=== PATIENT | female | born 1985 | race Caucasian/White ===

== ENCOUNTER 2016-12-04 09:49 | Emergency (ER) | payer OTHER ==
[~2016-12-04] VITALS: Ht 154.9 cm; Wt 61.1 kg
[~2016-12-04 09:49] MED LIST: ACYC-1 PO; BACT800T5 PO
[2016-12-04 10:00] VITALS: BP 133/93; PULSE 106; RESP 16; TEMP 98.3; O2SAT 98
[2016-12-04] MEDS ORDERED: SODIUM CHLOR 0.9% 1000 ML INJ 1,000 ML IV SCH (10:17)
[2016-12-04] MEDS ORDERED: SODIUM CHLORIDE 0.9% FLUSH 10 ML FLUSH IVF PRN (10:30)
[2016-12-04] MEDS ORDERED: ONDANSETRON HCL 4 MG/2 ML VIAL IVP ONE (10:30)
[2016-12-04] MEDS ORDERED: MORPHINE SULFATE 4 MG/ML INJ IV ONE (10:30)
[2016-12-04 10:39] LABS: AUTOMATED NEUTROPHIL # 3.8 TH/MM3 (1.8-7.7); BASOPHIL # 0.1 TH/MM3 (0-0.2); BASOPHIL % 1.2 % (0.0-2.0); EOSINOPHIL # 0.1 TH/MM3 (0-0.4); EOSINOPHIL % 2.2 % (0.0-4.0); HEMATOCRIT 39.9 % (35.0-46.0); HEMO FLAGS DIFF FINAL; LYMPH % 27.2 % (9.0-44.0); LYMPHOCYTE # 1.7 TH/MM3 (1.0-4.8); MEAN CELL VOLUME 96.4 FL (80.0-100.0); MEAN CORPUSCULAR HEMOGLOBIN 32.4 PG (27.0-34.0); MEAN CORPUSCULAR HGB CONC 33.7 % (32.0-36.0); MONO % 6.7 % (0.0-8.0); NEUT % 62.7 % (16.0-70.0); PLATELET COUNT 283 TH/MM3 (150-450); RED BLOOD COUNT 4.14 MIL/MM3 (4.00-5.30); RED CELL DISTRIBUTION WIDTH 12.6 % (11.6-17.2); WHITE BLOOD COUNT 6.1 TH/MM3 (4.0-11.0)
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
[2016-12-04 11:00] LABS: POTASSIUM 3.8 MEQ/L (3.5-5.1)
[2016-12-04 11:03] LABS: BICARBONATE 28.9 MEQ/L (21.0-32.0)
[2016-12-04 11:04] LABS: APTT (PATIENT) 28.6 SEC (24.3-30.1); INTERNATIONAL NORMALIZED RATIO 0.9 RATIO; PROTHROMBIN TIME - PATIENT 10.3 SEC (9.8-11.6)
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
[2016-12-04] MEDS ORDERED: IOHEXOL 350 MG/ML 10 ML VIAL (for RAD DIAG) IV ONE (11:29)
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
[2016-12-04 11:55] VITALS: BP 111/69; PULSE 74; RESP 18; O2SAT 98
[2016-12-04] MEDS ORDERED: CYCL1TAB29 PO (12:06)
== END 2016-12-04 12:17 | disposition home or self-care (01) ==
LOC: PHEFT 09:49
DX: S46.911A Strain of unspecified muscle, fascia and tendon at shoulder and upper arm level, right arm, initial encounter (principal); S56.911A Strain of unspecified muscles, fascia and tendons at forearm level, right arm, initial encounter; R10.11 Right upper quadrant pain; K21.9 Gastro-esophageal reflux disease without esophagitis; F17.210 Nicotine dependence, cigarettes, uncomplicated; V43.62XA Car passenger injured in collision with other type car in traffic accident, initial encounter; Y93.89 Activity, other specified; Y92.410 Unspecified street and highway as the place of occurrence of the external cause; Y99.8 Other external cause status
CPT/HCPCS: 71020; 73030; 73080; 74177; 80048; 85025; 85610; 85730; 86850; 86900; 86901; 96361; 96374; 96375; 99284; J2270; J2405; J7030; Q9967

== ENCOUNTER 2016-12-08 01:47 | Emergency (ER) | payer OTHER ==
[~2016-12-08] VITALS: Ht 167.6 cm; Wt 182.6 kg
[~2016-12-08 01:47] MED LIST changes: +CYCL1TAB29 PO
[2016-12-08 02:47] VITALS: BP 176/112; PULSE 119; RESP 18; TEMP 98.5; O2SAT 98
[2016-12-08] MEDS ORDERED: SODIUM CHLOR 0.9% 1000 ML INJ 1,000 ML IV SCH (02:53)
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
[2016-12-08] MEDS ORDERED: ONDANSETRON HCL 4 MG/2 ML VIAL IVP ONE (03:00)
[2016-12-08] MEDS ORDERED: SODIUM CHLORIDE 0.9% FLUSH 10 ML FLUSH IV FLUSH PRN (03:00)
[2016-12-08 03:10] LABS: AUTOMATED NEUTROPHIL # 4.4 TH/MM3 (1.8-7.7); BASOPHIL # 0.2 TH/MM3 (0-0.2); BASOPHIL % 2.3 % (0.0-2.0); EOSINOPHIL # 0.2 TH/MM3 (0-0.4); EOSINOPHIL % 2.5 % (0.0-4.0); HEMATOCRIT 41.4 % (35.0-46.0); HEMO FLAGS DIFF FINAL; LYMPH % 31.4 % (9.0-44.0); LYMPHOCYTE # 2.4 TH/MM3 (1.0-4.8); MEAN CELL VOLUME 95.2 FL (80.0-100.0); MEAN CORPUSCULAR HEMOGLOBIN 32.5 PG (27.0-34.0); MEAN CORPUSCULAR HGB CONC 34.2 % (32.0-36.0); MONO % 7.3 % (0.0-8.0); NEUT % 56.5 % (16.0-70.0); PLATELET COUNT 310 TH/MM3 (150-450); RED BLOOD COUNT 4.35 MIL/MM3 (4.00-5.30); RED CELL DISTRIBUTION WIDTH 12.2 % (11.6-17.2); WHITE BLOOD COUNT 7.8 TH/MM3 (4.0-11.0)
[2016-12-08 03:19] LABS: CHLORIDE 110 MEQ/L (98-107); SODIUM (NA) 144 MEQ/L (136-145)
[2016-12-08 03:23] LABS: ANION GAP 9 MEQ/L (5-15); BICARBONATE 24.9 MEQ/L (21.0-32.0); BLOOD UREA NITROGEN 8 MG/DL (7-18)
[2016-12-08 03:25] LABS: ALT (GPT) 39 U/L (10-53)
[2016-12-08 03:26] LABS: AST (GOT) 51 U/L (15-37); GLOMERULAR FILTRATION RATE 137 ML/MIN (>89)
[2016-12-08 03:27] LABS: TOTAL BILIRUBIN ADULT 0.2 MG/DL (0.2-1.0)
[2016-12-08 03:28] LABS: ALKALINE PHOSPHATASE 86 U/L (45-117)
[2016-12-08] MEDS ORDERED: KETOROLAC TROMETHAMINE 60 MG/2 ML (IM) VIAL IVP ONE (03:30)
[2016-12-08] MEDS ORDERED: IBUP-232 PO (03:43)
--- NOTE | 2016-12-08 03:44 | RADHPO ---
EXAM DATE/TIME: 12/08/2016 00:00 [facility] COMPARISON: No previous studies available for comparison. INDICATIONS : Right hip pain. MEDICAL HISTORY : None. SURGICAL HISTORY : None. ENCOUNTER: [facility] ACUITY: 4 - 6 days PAIN SCORE: 9/10 LOCATION: Right pelvis FINDINGS: A two view examination of the right hip was performed. The primary and secondary trabecular pattern of the femoral neck is intact. The hip joint is of normal width without significant sclerosis or bon y hypertrophy. The acetabulum is grossly intact. CONCLUSION: Unremarkable examination of the right hip. Jeffery Croft Jr., MD on December 08, 2016 at 3:42 Board Certified Radiologist. This report was verified electronically.
--- NOTE | 2016-12-08 03:45 | RADHPO ---
EXAM DATE/TIME: 12/08/2016 00:00 [facility] COMPARISON: No previous studies available for comparison. INDICATIONS : Right abdominal pain. MEDICAL HISTORY : None. SURGICAL HISTORY : None. ENCOUNTER: [facility] ACUITY: 4 - 6 days PAIN SCORE: 9/10 LOCATION: Right lower quadrant abdomen FINDINGS: Supine and upright views of the abdomen were performed. The abdominal bowel gas pattern is normal. No air fluid levels are seen. No abnormal masses, calcifications, or organomegaly is seen. The visu alized lower lungs are clear. No evidence of free intraperitoneal gas. The osseous structures are u nremarkable. CONCLUSION: Normal examination. Jeffery Croft Jr., MD on December 08, 2016 at 3:43 Board Certified Radiologist. This report was verified electronically.
[2016-12-08] MEDS ORDERED: ZOFR4TAB PO (04:41)
[2016-12-08 04:53] VITALS: BP 142/85; PULSE 74; RESP 16; O2SAT 98
== END 2016-12-08 05:03 | disposition home or self-care (01) ==
LOC: PHED 01:47
DX: R10.84 Generalized abdominal pain (principal); S70.01XA Contusion of right hip, initial encounter; R11.0 Nausea; K21.9 Gastro-esophageal reflux disease without esophagitis; F17.210 Nicotine dependence, cigarettes, uncomplicated; V89.9XXD Person injured in unspecified vehicle accident, subsequent encounter; Y93.9 Activity, unspecified; Y92.9 Unspecified place or not applicable; Y99.8 Other external cause status
CPT/HCPCS: 73502; 74020; 80053; 83690; 85025; 96361; 96374; 96375; 99284; J1885; J2405; J7030

== ENCOUNTER 2016-12-18 07:28 | Emergency (ER) | payer SELFPAY ==
[~2016-12-18] VITALS: Ht 154.9 cm; Wt 60.1 kg
[~2016-12-18 07:28] MED LIST changes: -ACYC-1 PO; -BACT800T5 PO; -CYCL1TAB29 PO; +IBUP-232 PO; +ZOFR4TAB PO
[2016-12-18 07:36] VITALS: BP 111/80; PULSE 106; RESP 16; TEMP 98.1; O2SAT 97
[2016-12-18] MEDS ORDERED: CEPHALEXIN MONOHYDRATE 500 MG CAP PO ONE (08:30)
[2016-12-18] MEDS ORDERED: LIDOCAINE VISCOUS 2% SOLN 15 ML UDC PO ONE (08:30)
[2016-12-18] MEDS ORDERED: ALUMINUM/MAGNESIUM/SIMETH 30 ML CUP PO ONE (08:30)
[2016-12-18] MEDS ORDERED: DEXAMETHASONE SOD PHOS 4 MG/ML VIAL IM ONE (08:30)
[2016-12-18] MEDS ORDERED: GUAI100S5 PO (08:31)
[2016-12-18] MEDS ORDERED: OCEA0.653 EACH NARE (08:31)
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
== END 2016-12-18 08:49 | disposition home or self-care (01) ==
LOC: PHED 07:28
DX: J02.9 Acute pharyngitis, unspecified (principal); H92.03 Otalgia, bilateral; R51 Headache; R05 Cough; F17.210 Nicotine dependence, cigarettes, uncomplicated
CPT/HCPCS: 96372; 99283; J1100

== ENCOUNTER 2017-01-29 16:49 | Emergency (ER) | payer SELFPAY ==
[~2017-01-29] VITALS: Ht 154.9 cm; Wt 61.0 kg
[~2017-01-29 16:49] MED LIST changes: +GUAI100S5 PO; +OCEA0.653 EACH NARE
[2017-01-29 16:56] VITALS: BP 148/96; PULSE 88; RESP 16; TEMP 98.2; O2SAT 96
[2017-01-29] MEDS ORDERED: SODIUM CHLOR 0.9% 1000 ML INJ 1,000 ML IV ONE (17:05)
[2017-01-29] MEDS ORDERED: BACL20TA PO (17:10)
[2017-01-29] MEDS ORDERED: IBUP800T23 PO (17:10)
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
[2017-01-29] MEDS ORDERED: MORPHINE SULFATE 4 MG/ML INJ IV PUSH ONE (17:15)
[2017-01-29] MEDS ORDERED: KETOROLAC TROMETHAMINE 30 MG/ML (IVP) VIAL IVP ONE (17:15)
[2017-01-29] MEDS ORDERED: diphenhydrAMINE HCL 50 MG/ML VIAL IVP ONE (17:15)
[2017-01-29] MEDS ORDERED: PROCHLORPERAZINE INJ 10 MG/2 ML VIAL IVP ONE (17:15)
[2017-01-29] MEDS ORDERED: SODIUM CHLORIDE 0.9% FLUSH 10 ML FLUSH IVF PRN (17:15)
[2017-01-29 17:22] VITALS: RESP 16; O2SAT 98
[2017-01-29 17:58] VITALS: RESP 16
[2017-01-29] MEDS ORDERED: BUTA1CAP PO (18:17)
[2017-01-29 19:26] VITALS: BP 120/69; TEMP 98.1
== END 2017-01-29 19:29 | disposition home or self-care (01) ==
LOC: PHED 16:49
DX: R51 Headache (principal); K21.9 Gastro-esophageal reflux disease without esophagitis; F17.200 Nicotine dependence, unspecified, uncomplicated
CPT/HCPCS: 96361; 96374; 96375; 99283; J0780; J1200; J1885; J2270; J7030

== ENCOUNTER 2017-06-23 19:10 | Emergency (ER) | payer SELFPAY ==
[~2017-06-23] VITALS: Ht 154.9 cm; Wt 58.5 kg
[~2017-06-23 19:10] MED LIST changes: +BACL20TA PO; +BUTA1CAP PO; -GUAI100S5 PO; -IBUP-232 PO; +IBUP800T23 PO; -OCEA0.653 EACH NARE; -ZOFR4TAB PO
[2017-06-23 19:18] VITALS: BP 169/91; PULSE 82; RESP 14; TEMP 98; O2SAT 97
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
[2017-06-23] MEDS ORDERED: HYDR-3516 PO (19:48)
[2017-06-23] MEDS ORDERED: SODIUM CHLOR 0.9% 1000 ML INJ 1,000 ML IV ONE (20:00)
[2017-06-23] MEDS ORDERED: diphenhydrAMINE HCL 50 MG/ML VIAL IV PUSH ONE (20:00)
[2017-06-23] MEDS ORDERED: KETOROLAC TROMETHAMINE 30 MG/ML (IVP) VIAL IV PUSH ONE (20:00)
[2017-06-23] MEDS ORDERED: PROCHLORPERAZINE INJ 10 MG/2 ML VIAL IV PUSH ONE (20:00)
--- NOTE | 2017-06-23 20:32 | PD ---
Data Data Last Documented VS Vital Signs Date Time Temp Pulse Resp B/P (MAP) Pulse Ox O2 Delivery O2 Flow Rate FiO2 06/23/17 20:50 06/23/17 19:18 98.0 82 14 97 Orders Orders Iv Access Insert/Monitor (06/23/17 19:48) Prochlorperazine Inj (Compazine Inj) (06/23/17 20:00) Diphenhydramine Inj (Benadryl Inj) (06/23/17 20:00) Ketorolac Inj (Toradol Inj) (06/23/17 20:00) Sodium Chlor 0.9% 1000 Ml Inj (Ns 1000 M (06/23/17 20:00) MDM Medical Record Reviewed: Yes Supervised Visit with DICKSON: Yes Narrative Course I, Dr. Bullock, have reviewed the advance practice practitioner's documentation and am in agreement, met with the patient face to face, made the diagnosis, and the medical decision making was done by me. *My assessment and Findings: The patient is resting comfortably and feels better, is alert and in no distress. The patients results and examination findings were discussed. The repeat examination is unremarkable and benign. The history, exam, diagnostic testing, and current condition do not suggest any significant pathology to warrant further testing, continued ED treatment, admission, or surgical evaluation at this point. The vital signs have been stable. The patient does not have uncontrollable pain, intractable vomiting, or other significant symptoms. The patient's condition is stable and appropriate for discharge. The patient will pursue further outpatient evaluation with a primary care physician or other designated or consulting physician as indicated in the discharge instructions. The patient expressed understanding and was agreeable with this plan. Scripts Wyjgoeywxu-Gwcjlbqkszexi-Rbcawerp (Fioricet) 50-300-40 Mg Cap 1 CAP PO Q6H Y for HEADACHE, #12 CAP 0 Refills Prov: Melani Lew 06/23/17 Jefry Bullock MD Jun 23, 2017 20:32
[2017-06-23] MEDS ORDERED: BUTA1CAP PO (20:47)
== END 2017-06-23 20:59 | disposition home or self-care (01) ==
LOC: PHED 19:10 → PHEFT 20:59
DX: R51 Headache (principal); K21.9 Gastro-esophageal reflux disease without esophagitis; F17.200 Nicotine dependence, unspecified, uncomplicated; Z88.0 Allergy status to penicillin
CPT/HCPCS: 96374; 96375; 99284; J0780; J1200; J1885; J7030

== ENCOUNTER 2018-01-12 22:10 | Emergency (ER) | payer OTHER ==
[~2018-01-12 22:10] MED LIST changes: -BACL20TA PO; +HYDR-3516 PO; +IBUP1TAB7 PO; -IBUP800T23 PO
[2018-01-12 22:22] VITALS: BP 145/82; PULSE 100; RESP 20; TEMP 97.9; O2SAT 96
[2018-01-13] MEDS ORDERED: BACT800T5 PO (00:16)
[2018-01-13] MEDS ORDERED: TRAM50 PO (00:17)
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
[2018-01-13] MEDS ORDERED: SILVER SULFADIAZINE 1% CR 50 GM JAR TOPICAL ONE (00:30)
[2018-01-13] MEDS ORDERED: traMADol HCL 50 MG TAB PO ONE (01:00)
[2018-01-13 01:23] VITALS: BP 125/87
== END 2018-01-13 01:25 | disposition home or self-care (01) ==
LOC: PHED 22:10
DX: T23.031A Burn of unspecified degree of multiple right fingers (nail), not including thumb, initial encounter (principal); T21.02XA Burn of unspecified degree of abdominal wall, initial encounter; X10.2XXA Contact with fats and cooking oils, initial encounter; Y93.G3 Activity, cooking and baking; K21.9 Gastro-esophageal reflux disease without esophagitis; F17.200 Nicotine dependence, unspecified, uncomplicated
CPT/HCPCS: 99283

== ENCOUNTER 2018-01-21 22:46 | Emergency (ER) | payer OTHER ==
[~2018-01-21] VITALS: Ht 154.9 cm; Wt 62.3 kg
[~2018-01-21 22:46] MED LIST changes: +BACT800T5 PO; -HYDR-3516 PO; +TRAM50 PO
[2018-01-21 22:52] VITALS: BP 137/77; PULSE 89; RESP 20; TEMP 97.8; O2SAT 98
[2018-01-21] MEDS ORDERED: FLUORESCEIN SOD 1 MG STRIP LEFT EYE ONE (23:30)
[2018-01-21] MEDS ORDERED: TETRACAINE 0.5% OPTH SOLN 2 ML BTL LEFT EYE ONE (23:30)
--- NOTE | 2018-01-22 | PD ---
HPI . Left eye swelling Chief Complaint: Eye Problems/Injury Time Seen by Provider: 23:24 Travel History International Travel<30 days: No Contact w/Intl Traveler<30days: No Traveled to known affect area: No History of Present Illness HPI This patient presents with chief complaint of swelling of her left eye. She got a bug in her eye about 2 hours prior to presentation. She states that she got the bug out but has had increasing eye discomfort and swelling since that time. She subsequently presents to us for treatment. Symptoms are moderate and continuous and have no modifying factors. PFSH Past Medical History Arthritis: No Diminished Hearing: No Gastrointestinal Disorders: No GERD: Yes Headaches: Yes (OCCASSIONAL) Heparin Induced Thrombocytopen: No Hypertension: No Implanted Vascular Access Dvce: No Musculoskeletal: Yes (bulging/herniated disc x 2 lower back) Neurologic: Yes Immunizations Current: Yes ?: Not LMP: 01/07/18 : 2 Para: 1 Miscarriage: 1 : 0 Past Surgical History Abdominal Surgery: No AICD: No Appendectomy: No Arteriovenous Shunt: No Cardiac Surgery: No Cholecystectomy: No Ear Surgery: No Endocrine Surgery: No Eye Surgery: No Genitourinary Surgery: No Gynecologic Surgery: No Joint Replacement: No Neurologic Surgery: No Oral Surgery: No Thoracic Surgery: No Other Surgery: No Social History Alcohol Use: Yes (SOCIALLY/OCCASIONALLY) Tobacco Use: Yes (1 PPD) Substance Use: No Allergies-Medications (Allergen,Severity, Reaction): Coded Allergies: clindamycin (Unverified Allergy, Severe, Anaphylaxis, 01/13/18) amoxicillin (Unverified Allergy, Mild, Rash, 01/13/18) penicillin G (Unverified Allergy, Unknown, A CHILD unknown reaction, 01/13/18) Reported Meds & Prescriptions Reported Meds & Active Scripts Active Ultram (Tramadol HCl) 50 Mg Tab 50 Mg PO Q6H PRN Bactrim DS (Sulfamethoxazole-Trimethoprim) 800-160 Mg Tab 1 Tab PO BID Fioricet (Ldobfjlbql-Cyjhngvcynnlm-Qmnexikh) 50-300-40 Mg Cap 1 Cap PO Q6H PRN Reported Ibuprofen 800 Mg Tab 800 Mg PO Q6HR PRN Review of Systems Except as stated in HPI: all other systems reviewed are Neg Eyes: Positive: Photophobia, Foreign Body Sensation, Tearing, Other (Swelling) Physical Exam Narrative GENERAL: Awake and alert and in no acute distress. SKIN: Warm and dry. HEAD: Normocephalic/atraumatic. EYES: She has some mild edema of the lids. She has mild conjunctival injection. Lid eversion reveals no foreign bodies. Fluorescein staining shows very mild uptake just below the pupil. NECK: Normal range of motion. CARDIOVASCULAR: Regular rate and rhythm. RESPIRATORY: Nonlabored respirations. MUSCULOSKELETAL: Atraumatic. NEUROLOGICAL: Nonfocal. PSYCHIATRIC: Appropriate mood and affect. Data Data Last Documented VS Vital Signs Date Time Temp Pulse Resp B/P (MAP) Pulse Ox O2 Delivery O2 Flow Rate FiO2 01/21/18 22:52 97.8 89 20 137/77 (97) 98 Orders Orders Tetracaine 0.5% Opht Soln (Pontocaine 0. (01/21/18 23:30) Fluorescein Strip (Xenzl-F-Mobowk A.T.) (01/21/18 23:30) Erythromycin 0.5% Opth Oint (Ilotycin 0. (01/22/18 00:15) Ketorolac 0.5% Opth Soln (Acular 0.5% Op (01/22/18 09:00) Acetamin-Hydrocod 325-5 Mg ([place] 5-325 (01/22/18 00:15) MDM Medical Decision Making Medical Screen Exam Complete: Yes Emergency Medical Condition: Yes Differential Diagnosis Differential diagnosis of eye pain includes but is not limited to conjunctivitis , chemical irritation, corneal abrasion, acute angle-closure glaucoma. Narrative Course This patient presents with left eye pain and swelling after having a bug fly into her eye a few hours ago. Exam reveals no obvious retained foreign body. Fluorescein staining does show some mild uptake. She will be treated with erythromycin ophthalmic ointment, Acular and [place]. I did look her up in [employer]. She had been getting prescriptions for [place] regularly but has not had any in the past several months. I will give her 6 which should be plenty for this injury. Diagnosis Primary Impression: Corneal abrasion Qualified Codes: S05.02XA - Injury of conjunctiva and corneal abrasion without foreign body, left eye, initial encounter Patient Instructions: Corneal Abrasion (DC), General Instructions Med/Other Pt SpecificInfo: Prescription(s) given Scripts Hydrocodone-Acetaminophen ([place]) 5 Mg-325 Mg Tab 1 TAB PO Q4H Y for PAIN, #6 TAB 0 Refills Prov: Jess Yin MD 01/22/18 Disposition: 01 DISCHARGE HOME Condition: Stable Jess Yin MD January 22, 2018 00:00
[2018-01-22] MEDS ORDERED: NORC5TAB PO (00:06)
[2018-01-22] MEDS ORDERED: KETOROLAC TROMETHAMINE 0.5% OPHT SOLN 5 ML BTL LEFT EYE SCH ×2 (00:15→09:00)
[2018-01-22] MEDS ORDERED: ACETAMINOPHEN/HYDROcodone 325 MG/5 MG TAB PO ONE (00:15)
[2018-01-22] MEDS ORDERED: ERYTHROMYCIN 0.5% OPTH OINT 3.5 GM TUBO EACH EYE SCH (00:15)
== END 2018-01-22 00:31 | disposition home or self-care (01) ==
LOC: PHED 22:46
DX: S05.02XA Injury of conjunctiva and corneal abrasion without foreign body, left eye, initial encounter (principal); K21.9 Gastro-esophageal reflux disease without esophagitis; F17.200 Nicotine dependence, unspecified, uncomplicated; W22.8XXA Striking against or struck by other objects, initial encounter; Z79.899 Other long term (current) drug therapy; Z88.0 Allergy status to penicillin
CPT/HCPCS: 99283